=== PATIENT | male | born 1965 | race American Indian/Alaskan Native ===

== ENCOUNTER 2017-06-10 19:55 | Emergency (ER) | payer SELFPAY ==
[2017-06-11] MEDS ORDERED: MOTRIN PO ONE (01:20)
[2017-06-11] MEDS ORDERED: ROBITUSSIN PO ONE (01:20)
--- NOTE | 2017-06-11 01:23 | Emergency Department Report ---
Minor Respiratory - HPI Chief Complaint: Medical Clearance Stated Complaint: MEDICAL CLEARANCE LAB Time Seen by Provider: 06/11/17 00:55 Duration: 2 Days Severity: mild Minor Respiratory: Yes Able to Tolerate Fluids, Yes Cough, Yes Sick Contacts, No Rhinorrhea, No Sore Throat, No Ear Pain, No Hemoptysis, No Chest Pain, No Shortness of Breath, No Fever Other History: Patient is a 51-year-old male presents to ED complaining of dry intermittent nonproductive cough for the past one week. Patient denies C versus 2/nausea/vomiting/diarrhea status post palpation. Patient states is able to eat and drink normally. Patient also admits to being HIV positive and being a diabetic. Patient states he takes his medication regularly. ED Review of Systems ROS: Stated complaint: MEDICAL CLEARANCE LAB Other details as noted in HPI Constitutional: denies: chills, fever Eyes: denies: eye pain, eye discharge, vision change ENT: denies: ear pain, throat pain Respiratory: cough. denies: shortness of breath, wheezing Cardiovascular: denies: chest pain, palpitations Endocrine: no symptoms reported Gastrointestinal: denies: abdominal pain, nausea, vomiting, diarrhea Genitourinary: denies: urgency, dysuria, frequency, hematuria Musculoskeletal: denies: back pain, joint swelling, arthralgia Skin: denies: rash, lesions Neurological: denies: headache, weakness, paresthesias Psychiatric: denies: anxiety, depression Hematological/Lymphatic: denies: easy bleeding, easy bruising ED Past Medical Hx - Past Medical History Previous Medical History?: Yes Hx Hypertension: Yes Hx Congestive Heart Failure: No Hx Diabetes: Yes Hx Arthritis: Yes Hx Asthma: No Hx COPD: No Hx HIV: Yes (diagnosis September 2013. Has not had follow-up. Unknown CD4) Additional medical history: gout - Surgical History Past Surgical History?: Yes Additional Surgical History: RIGHT Hand surgery - Social History Smoking Status: Current Every Day Smoker Substance Use Type: None - Medications Home Medications: Home Medications Medication Instructions Recorded Confirmed Last Taken Type metFORMIN [Glucophage] 500 mg PO BID 01/04/15 05/12/15 02/23/16 History Omeprazole Magnesium [PriLOSEC Otc] 20 mg PO BID #20 tab 05/12/15 Unknown Rx Sulfamethoxazole/Trimethoprim 1 each PO BID #14 tablet 01/19/16 Unknown Rx [Bactrim DS TAB] Acyclovir [Acyclovir Ointment] 15 gm TP TID #1 tube 02/23/16 Unknown Rx Acyclovir [Zovirax Tab] 400 mg PO Q8H #15 tab 02/23/16 Unknown Rx Elviteg/Gabriella/Emtric/Tenofo Ala 1 each PO 02/23/16 02/22/16 History [Genvoya Tablet] Fluconazole [Diflucan TAB] 150 mg PO ONCE #1 tablet 02/23/16 Unknown Rx Multivitamin with Iron 1 tab PO DAILY 02/23/16 02/23/16 02/22/16 History [Multivitamins with Iron] Nystatin [Nystatin SUSP] 5 ml PO QID #140 ml 02/23/16 Unknown Rx Sertraline [Zoloft] 100 mg PO QDAY 02/23/16 02/23/16 02/22/16 History Benzonatate [Tessalon Perles] 100 mg PO Q8HR #24 capsule 06/11/17 Unknown Rx Ibuprofen [Motrin] 600 mg PO Q8H PRN #30 tablet 06/11/17 Unknown Rx guaiFENesin ER [Mucinex ER] 600 mg PO Q12H #10 tablet.er 06/11/17 Unknown Rx Minor Respiratory Exam - Exam General: Vital signs noted. No distress. Alert and acting appropriately. HEENT: Yes Moist Mucous Membranes, No Pharyngeal Erythema, No Pharyngeal Exudates, No Rhinorrhea, No Conjuctival Injection, No Frontal Tenderness, No Maxillary Tenderness Ear: Neither TM Bulge, Neither TM Erythema, Neither EAC Pain, Neither EAC Discharge Neck: Yes Supple, No Adenopathy Lungs: Yes Good Air Exchange, No Wheezes, No Ronchi, No Stridor, No Cough, No Labored Respirations, No Retractions, No Use of Accessory Muscles, No Other Abnormal Lung Sounds Heart: Yes Regular, No Murmur Abdomen: Yes Normal Bowel Sounds, No Tenderness, No Peritoneal Signs Skin: No Rash, No Edema Neurologic: Alert and oriented, no deficits. Musculoskeletal: Unremarkable. ED Course Vital Signs 06/10/17 22:11 Temperature 97.5 F L Pulse Rate 70 Blood Pressure 126/84 O2 Sat by Pulse 99 Oximetry ED Medical Decision Making - Radiology Data Radiology results: report reviewed No acute cardiopulmonary infiltrates or infections - Medical Decision Making 51-year-old male presents with bronchitis. Fever resolved no fever during the ED stay. Chest x-ray obtained in ED, patient received Motrin and Robitussin ED Discussed with symptomatic relief with [id number] medications. Discussed continue Motrin as needed for fever and pain. Discussed increase fluids and diet intake. Discussed rest much needed. Discussed daily vitamin C for immune booster. Discussed follow-up with pcp in 3-5 days. Patient verbally states she understands and will comply the following instructions and follow-up Vital signs stable. Patient is in no acute distress Critical care attestation.: If time is entered above; I have spent that time in minutes in the direct care of this critically ill patient, excluding procedure time. ED Disposition Clinical Impression: Bronchitis URI (upper respiratory infection) Qualifiers: URI type: unspecified URI Qualified Code(s): J06.9 - Acute upper respiratory infection, unspecified Disposition: TO HOME OR SELFCARE Is pt being admited?: No Does the pt Need Aspirin: No Condition: Stable Instructions: Upper Respiratory Infection (ED), Chronic Bronchitis (ED), Viral Syndrome (ED), Cold Symptoms (ED) Additional Instructions: Make sure to follow up with the primary care physician as discussed. Take all your medications as you've been prescribed. If you have any worsening symptoms or develop new symptoms please return to ED immediately. Prescriptions: Benzonatate [Tessalon Perles] 100 mg PO Q8HR #24 capsule guaiFENesin ER [Mucinex ER] 600 mg PO Q12H #10 tablet.er Ibuprofen [Motrin] 600 mg PO Q8H PRN #30 tablet PRN Reason: Pain Referrals: PRIMARY CARE, [Primary Care Provider] - 3-5 Days [facility] [Outside] - 3-5 Days [facility] [Outside] - 3-5 Days [facility] [Outside] - 3-5 Days Forms: Accompanied Note, Work/School Release Form(ED) Time of Disposition: 01:49
--- NOTE | 2017-06-11 01:39 | XRay Report ---
FINAL REPORT EXAM: XR CHEST ROUTINE 2V HISTORY: cough TECHNIQUE: PA and lateral views of the chest were submitted. FINDINGS: The heart size and mediastinum appear normal. The lungs are clear. Pleural fluid is not seen. The bones and soft tissues appear normal. IMPRESSION: Normal chest
[2017-06-11 02:17] VITALS: BP 128/88
== END 2017-06-11 02:14 | disposition home or self-care (01) ==
LOC: ED 19:55
DX: J06.9 Acute upper respiratory infection, unspecified (principal); J40 Bronchitis, not specified as acute or chronic; I10 Essential (primary) hypertension; E11.9 Type 2 diabetes mellitus without complications; M19.90 Unspecified osteoarthritis, unspecified site; F17.200 Nicotine dependence, unspecified, uncomplicated
CPT/HCPCS: 71046; 99283

== ENCOUNTER 2017-12-10 01:04 | Emergency (ER) | payer SELFPAY ==
[2017-12-10 01:31] VITALS: BP 134/91
--- NOTE | 2017-12-10 02:17 | XRay Report ---
FINAL REPORT PROCEDURE: XR FOOT 2V LT TECHNIQUE: LEFT foot radiographs, AP and lateral views. HISTORY: conventional oven fell on foot COMPARISON: No prior studies are available for comparison. FINDINGS: Fracture (s) and/or Dislocation(s): There is a comminuted impacted fracture of the distal phalanx 1st digit left foot. Alignment: There is a moderate hallux valgus deformity. Joint space(s): Mild narrowing of the joint spaces. Soft tissues: Normal. Bone mineralization: Normal. Foreign bodies: None. Calcaneal spurring: None. IMPRESSION: Comminuted impacted fracture distal phalanx 1st digit left foot. Moderate arthritis.
[2017-12-10] MEDS ORDERED: NORCO 5/325 PO ONE (03:52)
[2017-12-10] MEDS ORDERED: BOOSTRIX IM ONE (05:38)
[2017-12-10] MEDS ORDERED: KEFLEX PO ONE (05:38)
--- NOTE | 2017-12-10 05:39 | Emergency Department Report ---
ED Lower Extremity HPI - General Chief Complaint: Extremity Injury, Lower Stated Complaint: LEFT FOOT INJURY Time Seen by Provider: 12/10/17 03:48 Source: patient Mode of arrival: Ambulatory Limitations: No Limitations - History of Present Illness Initial Comments: Patient is a 52-year-old -[place] male history of hypertension diabetes patient is a highway maintenance worker for [employer] . A industrial oven door Ray fell impacting his left great toe causing pain and bleeding swelling tingling patient with partial weight bearing and is diabetes is controlled with metformin and glipizide pain described as 5/10 throbbing. MD Complaint: foot injury (left great toe) Onset/Timin -: hour(s) Injury: Toes: Left (left great toe injury ) Type of Injury: blunt Place: work Severity: moderate Severity scale (0 -10): 5 Improves With: nothing Worsens With: weight bearing, movement, palpation Context: direct blow Associated Symptoms: swelling, tingling, able to partially bear weight - Related Data Home Medications Medication Instructions Recorded Confirmed Last Taken metFORMIN [Glucophage] 500 mg PO BID 01/04/15 05/12/15 02/23/16 Elviteg/Gabriella/Emtric/Tenofo Ala 1 each PO 02/23/16 02/22/16 [Genvoya Tablet] Multivitamin with Iron 1 tab PO DAILY 02/23/16 02/23/16 02/22/16 [Multivitamins with Iron] Sertraline [Zoloft] 100 mg PO QDAY 02/23/16 02/23/16 02/22/16 Previous Rx's Medication Instructions Recorded Last Taken Type Omeprazole Magnesium [PriLOSEC Otc] 20 mg PO BID #20 tab 05/12/15 Unknown Rx Sulfamethoxazole/Trimethoprim 1 each PO BID #14 tablet 01/19/16 Unknown Rx [Bactrim DS TAB] Acyclovir [Acyclovir Ointment] 15 gm TP TID #1 tube 02/23/16 Unknown Rx Acyclovir [Zovirax Tab] 400 mg PO Q8H #15 tab 02/23/16 Unknown Rx Fluconazole [Diflucan TAB] 150 mg PO ONCE #1 tablet 02/23/16 Unknown Rx Nystatin [Nystatin SUSP] 5 ml PO QID #140 ml 02/23/16 Unknown Rx Benzonatate [Tessalon Perles] 100 mg PO Q8HR #24 capsule 06/11/17 Unknown Rx Ibuprofen [Motrin] 600 mg PO Q8H PRN #30 tablet 06/11/17 Unknown Rx guaiFENesin ER [Mucinex ER] 600 mg PO Q12H #10 tablet.er 06/11/17 Unknown Rx Acetaminophen/Codeine [Tylenol 1 tab PO Q6H PRN #15 tab 12/10/17 Unknown Rx /Codeine # 3 tab] cephALEXin [Keflex] 500 mg PO QID #40 cap 12/10/17 Unknown Rx Allergies Allergy/AdvReac Type Severity Reaction Status Date / Time iodine Allergy Swelling Verified 05/12/15 10:50 shrimp Allergy Swelling Uncoded 05/12/15 10:50 ED Review of Systems ROS: Stated complaint: LEFT FOOT INJURY Other details as noted in HPI Constitutional: denies: chills, fever Eyes: denies: eye pain, eye discharge, vision change ENT: denies: ear pain, throat pain Respiratory: denies: cough, shortness of breath, wheezing Cardiovascular: denies: chest pain, palpitations Endocrine: no symptoms reported Gastrointestinal: denies: abdominal pain, nausea, diarrhea Genitourinary: denies: urgency, dysuria Musculoskeletal: as per HPI, myalgia, other Skin: denies: rash, lesions Neurological: abnormal gait. denies: headache, weakness, numbness, paresthesias Psychiatric: denies: anxiety, depression ED Past Medical Hx - Past Medical History Hx Hypertension: Yes Hx Congestive Heart Failure: No Hx Diabetes: Yes Hx Arthritis: Yes Hx Asthma: No Hx COPD: No Hx HIV: Yes (diagnosis September 2013. Has not had follow-up. Unknown CD4) Additional medical history: gout - Surgical History Past Surgical History?: Yes Additional Surgical History: RIGHT Hand surgery - Social History Smoking Status: Current Every Day Smoker Substance Use Type: None - Medications Home Medications: Home Medications Medication Instructions Recorded Confirmed Last Taken Type metFORMIN [Glucophage] 500 mg PO BID 01/04/15 05/12/15 02/23/16 History Omeprazole Magnesium [PriLOSEC Otc] 20 mg PO BID #20 tab 05/12/15 Unknown Rx Sulfamethoxazole/Trimethoprim 1 each PO BID #14 tablet 01/19/16 Unknown Rx [Bactrim DS TAB] Acyclovir [Acyclovir Ointment] 15 gm TP TID #1 tube 02/23/16 Unknown Rx Acyclovir [Zovirax Tab] 400 mg PO Q8H #15 tab 02/23/16 Unknown Rx Elviteg/Gabriella/Emtric/Tenofo Ala 1 each PO 02/23/16 02/22/16 History [Genvoya Tablet] Fluconazole [Diflucan TAB] 150 mg PO ONCE #1 tablet 02/23/16 Unknown Rx Multivitamin with Iron 1 tab PO DAILY 02/23/16 02/23/16 02/22/16 History [Multivitamins with Iron] Nystatin [Nystatin SUSP] 5 ml PO QID #140 ml 02/23/16 Unknown Rx Sertraline [Zoloft] 100 mg PO QDAY 02/23/16 02/23/16 02/22/16 History Benzonatate [Tessalon Perles] 100 mg PO Q8HR #24 capsule 06/11/17 Unknown Rx Ibuprofen [Motrin] 600 mg PO Q8H PRN #30 tablet 06/11/17 Unknown Rx guaiFENesin ER [Mucinex ER] 600 mg PO Q12H #10 tablet.er 06/11/17 Unknown Rx Acetaminophen/Codeine [Tylenol 1 tab PO Q6H PRN #15 tab 12/10/17 Unknown Rx /Codeine # 3 tab] cephALEXin [Keflex] 500 mg PO QID #40 cap 12/10/17 Unknown Rx ED Physical Exam - General Limitations: No Limitations General appearance: alert, in no apparent distress - Head Head exam: Present: atraumatic, normocephalic - Eye Eye exam: Present: normal appearance - ENT ENT exam: Present: mucous membranes moist - Neck Neck exam: Present: normal inspection - Respiratory Respiratory exam: Present: normal lung sounds bilaterally. Absent: respiratory distress - Cardiovascular Cardiovascular Exam: Present: regular rate, normal rhythm. Absent: systolic murmur, diastolic murmur, rubs, gallop - GI/Abdominal GI/Abdominal exam: Present: soft, normal bowel sounds - Rectal Rectal exam: Present: deferred - Extremities Exam Extremities exam: Present: tenderness, joint swelling. Absent: calf tenderness - Expanded Lower Extremity Exam Right Foot/Toe exam: Present: full ROM, tenderness, swelling, abrasion, ecchymosis, erythema, puncture wound (left great toe puncture wound , left great toe tinea pedis no subungual hematoma, PPEPB+2 ). Absent: laceration, deformity, crepidus , dislocation, amputation, calcaneal tenderness, tenderness at base of 5th metatarsal, subungual hematoma Neuro vascular tendon exam: Absent: no vascular compromise, pulse deficit, abnormal cap refill, motor deficit, sensory deficit, tendon deficit, extremity cold to touch, pallor, abnormal 2-point discrimination, decreased fine/light touch, foot drop, peroneal nerve deficit, significant pain with passive ROM of distal joint Gait: Positive: observed and limited by pain 1 - Mamie pedis great toe, hallux valgus puncture wound, toe fracture distal great toe - Back Exam Back exam: Present: normal inspection, full ROM. Absent: tenderness, CVA tenderness (R), CVA tenderness (L), muscle spasm, paraspinal tenderness, vertebral tenderness - Neurological Exam Neurological exam: Present: alert, oriented X3, CN II-XII intact, abnormal gait , reflexes normal. Absent: motor sensory deficit - Psychiatric Psychiatric exam: Present: normal affect, normal mood - Skin Skin exam: Present: warm, dry, intact, normal color. Absent: rash ED Course Vital Signs 12/10/17 01:25 Temperature 98.2 F Pulse Rate 84 Respiratory 20 Rate Blood Pressure 134/91 O2 Sat by Pulse 99 Oximetry ED Lower Extremity MDM - Radiology Data Radiology results: report reviewed, image reviewed interpreted by me: comminuted impacted fracture of distal phalanx 1st digit left foot, moderate arthritis - Medical Decision Making There is a comminuted impacted fracture of the distal phalanx first toe left foot , previous and chronic tinea pedis same to nail is cracked patient refuses removal of toenail patient advises is considered an open fracture distal to her x-ray not likely bone protruded than actual abrasion or puncture from toenail itself pedal pulses are palpable bilateral +2 range of motion intact moderate swelling distal great toe secondary plan Betadine dressing applied to left great toe patient has agreed to follow-up with orthopedics Dr. Hallman today as well as treated as an open fracture refused IV antibiotics start Keflex by mouth 500 4 times a day and Tylenol No. 3 when necessary pain, Betadine dressing applied postop shoe applied patient is ambulatory with postop shoe again directed to follow-up with Ortho today or his painter plate if he can get an appointment today. As he is adamant he wants his painter plate to remove the nail and treat toe patient discussed signs of infection with patient patient verbalizes understanding and agreement with same patient on and agreement with signing AMA however I will give prescriptions for antibiotics and pain medicine as well as likely to get infected if not follow and he does not appear to antibiotic regimen. Critical care attestation.: If time is entered above; I have spent that time in minutes in the direct care of this critically ill patient, excluding procedure time. ED Disposition Clinical Impression: Open fracture of toe of left foot Qualifiers: Encounter type: initial encounter Toe: great toe Phalanx: distal Fracture alignment: nondisplaced Qualified Code(s): S92.425B - Nondisplaced fracture of distal phalanx of left great toe, initial encounter for open fracture Disposition: TO HOME OR SELFCARE Is pt being admited?: No Does the pt Need Aspirin: No Condition: Stable Instructions: Toe Fracture (ED), Puncture Wound (ED), Wound Infection (ED), Diabetic Foot Care (ED) Prescriptions: Acetaminophen/Codeine [Tylenol /Codeine # 3 tab] 1 tab PO Q6H PRN #15 tab PRN Reason: pain cephALEXin [Keflex] 500 mg PO QID #40 cap Referrals: VARUN HALLMAN MD [Staff Physician] - 3-5 Days Forms: AMA Form, Work/School Release Form(ED) Time of Disposition: 05:55
== END 2017-12-10 06:10 | disposition home or self-care (01) ==
LOC: ED 01:04
DX: S92.425B Nondisplaced fracture of distal phalanx of left great toe, initial encounter for open fracture (principal); I10 Essential (primary) hypertension; E11.9 Type 2 diabetes mellitus without complications; F17.200 Nicotine dependence, unspecified, uncomplicated; M10.9 Gout, unspecified; Z21 Asymptomatic human immunodeficiency virus [HIV] infection status; Z91.013 Allergy to seafood; W18.09XA Striking against other object with subsequent fall, initial encounter; Y93.89 Activity, other specified; Y92.511 Restaurant or cafe as the place of occurrence of the external cause; Y99.8 Other external cause status
CPT/HCPCS: 90471; 90715; 99283